=== PATIENT | female | born 1975 | race American Indian/Alaskan Native ===

== ENCOUNTER 2017-03-15 17:20 | Emergency (ER) | payer SELFPAY ==
[2017-03-15] MEDS ORDERED: TYLENOL ONE (17:46)
[2017-03-15] MEDS ORDERED: TYLENOL PO ONE (17:48)
--- NOTE | 2017-03-15 23:18 | Emergency Department Report ---
HPI - General Chief Complaint: Fever Time Seen by Provider: 03/15/17 22:40 - HPI HPI: Patient here reports fever, cough, body aches since yesterday. Denies any nausea or vomiting. Denies any chest pain or shortness of breath. Patient has no medical problem. Generalized body ache at 10 out of 10 and achy. Over-the- counter cold and cough without any relief. She is also complaining a headache. Denies any neck pain or stiffness. ED Past Medical Hx - Past Medical History Previous Medical History?: No - Surgical History Past Surgical History?: No - Family History Family history: no significant - Social History Smoking Status: Never Smoker Substance Use Type: None - Medications Home Medications: Home Medications Medication Instructions Recorded Confirmed Last Taken Type Ibuprofen [Motrin] 600 mg PO Q8H PRN 5 Days #20 tablet 03/16/17 Unknown Rx Oseltamivir [Tamiflu] 75 mg PO BID 5 Days #10 cap 03/16/17 Unknown Rx guaiFENesin/CODEINE [Robitussin AC] 5 ml PO Q8H PRN 5 Days #75 ml 03/16/17 Unknown Rx ED Review of Systems ROS: Stated complaint: Body Aches/fever Other details as noted in HPI Comment: All other systems reviewed and negative Constitutional: chills, fever Eyes: denies: eye pain, eye discharge ENT: throat pain, congestion. denies: ear pain Respiratory: cough. denies: orthopnea, shortness of breath, SOB with exertion, SOB at rest, stridor, wheezing Cardiovascular: denies: chest pain, palpitations, dyspnea on exertion, orthopnea , edema, syncope, paroxysmal nocturnal dyspnea Gastrointestinal: denies: abdominal pain, nausea, vomiting, diarrhea, constipation, hematemesis, melena Genitourinary: denies: urgency, dysuria, hematuria Musculoskeletal: myalgia. denies: back pain, joint swelling, arthralgia Skin: denies: rash Neurological: headache. denies: weakness, numbness, paresthesias, confusion, abnormal gait, vertigo Physical Exam - Physical Exam Vital Signs: Vital Signs 03/15/17 17:46 Temperature 101.6 F H Pulse Rate 97 H Respiratory 18 Rate Blood Pressure 141/80 O2 Sat by Pulse 98 Oximetry General: This is a 42-year-old female well-nourished well-developed in no acute distress. Physical Exam: Head: Normocephalic atraumatic Ears:BIateral TM congested without erythema and loss of bony landmarks. Nomi EAC with normal exam. No mastoid bone tenderness. Mouth: Moist, no pharyngeal erythema or exudate . No tonsillar erythema or exudate. UVULA midline and oral airways patent. No peritonsillar abscess Neck: Nontender to palpate, supple, normal range of motion. No adenopathy. No c- spine tenderness. Nose: Bilateral nasal mucosa congested with clear drainage. Maxillary and frontal sinuses non- tender to palpate. Abdomen: Soft, nontender to palpate no quadrants, no guarding or rebound tenderness. Normal bowel sounds and no CVA tenderness Back: Normal exam. No vertebral or paraspinal tenderness. Eyes: Sclerae and conjunctiva without injection. Bilateral pupils equal and reactive to light. Bilateral lids are normal. Normal accommodation.BEOMI Lungs: Clear to auscultate bilaterally, no rhonchi wheezes or rales. Normal work of breathing and no chest wall tenderness. Dry cough CV: S1, S2. Regular rate and rhythm negative murmur. Capillary refill is less than 3 seconds Neurological: GCS at 15, speech is clear and fluid. No facial drooping. Normal gait, negative Romberg and pronator drift. No motor or sensory deficit. Skin: Clean dry and intact, no rashes or lesions Psych: Normal mood and behavior ED Course Vital Signs 03/15/17 17:46 Temperature 101.6 F H Pulse Rate 97 H Respiratory 18 Rate Blood Pressure 141/80 O2 Sat by Pulse 98 Oximetry - Reevaluation(s) Reevaluation #1: 03/15/17 23:56 Patient given Tylenol 650 mg in triage area and additional Motrin 800 mg in the emergency room. She is able to tolerate oral liquids without any difficulties. ED Medical Decision Making - Lab Data Influenza A and B- - Medical Decision Making ED course: Patient here complaining of flulike symptoms. Influenza A and B is negative. Patient has viral syndrome. She was given Tylenol 650 mg in triage area and Motrin 800 mg when necessary emergency room. I discussed the patient that her flu test was negative. I discussed with her that although her flu test is negative she still has a viral syndrome and will need to take Tamiflu, Motrin and cough medicine. I discussed with her she needs to stay home for the next few days, rest and hydrate herself with water and/or Gatorade. I also discussed with her that she should follow-up with her primary care physician in 2 days. Patient was able to tolerate oral liquids and emergency room without any difficulties. Vital signs stable and her temperature is down to 100.5 from 101.6. Patient discharged home with prescription for Tamiflu, Motrin and guaifenesin with codeine Critical care attestation.: If time is entered above; I have spent that time in minutes in the direct care of this critically ill patient, excluding procedure time. ED Disposition Clinical Impression: Viral syndrome, Fever and chills, Cough in adult Acute headache Qualifiers: Headache type: unspecified Intractability: not intractable Qualified Code(s): R51 - Headache Disposition: - TO HOME OR SELFCARE Is pt being admited?: No Does the pt Need Aspirin: No Condition: Stable Instructions: Viral Syndrome (ED), Acute Headache (ED), Fever in Adults (ED), Acute Cough (ED) Additional Instructions: Please increase her fluid intake to 2-3 L of water and/or Gatorade per day. Take Tamiflu as prescribed Take Motrin as prescribed. This will help with your fever and pain. You have viral syndrome and you have to rest, increasing fluid intake for the next couple days. If symptoms worsens he can return to the emergency room. Please do not drive or operate heavy machinery while taking cough medicine at this causes drowsiness. Prescriptions: guaiFENesin/CODEINE [Robitussin AC] 5 ml PO Q8H PRN 5 Days #75 ml PRN Reason: Cough Ibuprofen [Motrin] 600 mg PO Q8H PRN 5 Days #20 tablet PRN Reason: FEVER AND PAIN Oseltamivir [Tamiflu] 75 mg PO BID 5 Days #10 cap Referrals: [facility] [Outside] - 03/17/17 Forms: Work/School Release Form(ED)
[2017-03-15] MEDS ORDERED: MOTRIN PO ONE (23:23)
[2017-03-16 00:04] VITALS: BP 125/68
== END 2017-03-16 00:20 | disposition home or self-care (01) ==
LOC: ED 17:20
DX: B34.9 Viral infection, unspecified (principal); R50.9 Fever, unspecified; R05 Cough; R51 Headache
CPT/HCPCS: 87400; 99283